=== PATIENT | female | born 1975 | race Caucasian/White ===

== ENCOUNTER → 2017-05-06 | Day surgery (SDC) | payer OTHER ==
[~2017-05-06] VITALS: Ht 167.6 cm; Wt 91.6 kg
[~2017-05-06] MED LIST: COLACE; FENTAnyl 50 MCG/ML VIAL ONE; MIDAZOLAM 1 MG/ML 2 ML INJ ONE; PROPOFOL 60 ML ONE
[2017-05-06 14:39] VITALS: Ht 167.6 cm; Wt 91.6 kg
[2017-05-06 14:43] VITALS: BP 146/84; PULSE 75; RESP 18
--- NOTE | 2017-05-06 15:15 | OPPN ---
Date/Time of Note Date/Time of Note DATE: 05/06/17 TIME: 15:14 Operative Report Preoperative Diagnosis Rectal bleeding Postoperative Diagnosis Internal hemorrhoids Operation/Procedure Performed Colonoscopy Surgeon see signature line bar assistant None Anesthesia: moderate sedation Estimated blood loss: none Transfusion Required none Specimen None Grafts/Implants none Complications none MARY CRABTREE MD May 06, 2017 15:15
[2017-05-06 15:54] VITALS: BP 146/87; RESP 16
--- NOTE | 2017-05-06 15:54 | GILP ---
DATE OF PROCEDURE: NAME OF PROCEDURE: Colonoscopy. SURGEON: Mary Molina MD PREOPERATIVE DIAGNOSIS: Rectal bleeding. POSTOPERATIVE DIAGNOSES 1. Colonoscopy all the way to the cecum. 2. Internal hemorrhoids. 3. No colitis or neoplasm was identified. INDICATION FOR THE PROCEDURE: Ms. Sheila Anderson is a 41-year-old female patient who had r ectal bleeding and change in the bowel habit. The patient was scheduled for colonoscopy for further evaluation. The procedure and possible complications are well explained to the patient. She understood and cons ented to the procedure. DESCRIPTION OF PROCEDURE: Under the influence of fentanyl and Versed, the colonoscope was carefully introduced in the rectum and under direct vision, it was advanced all the way to the cecum. FINDINGS: The patient had internal hemorrhoids. No colitis or neoplasm was identified. She tolerated the procedure very well and there was no complication from the procedure. At the end of the procedure, she was awake with stable vital signs and she was discharged home to the care of h er family. IMPRESSION: Please see postoperative diagnoses. PLAN: 1. Anusol-HC 2.5% cream b.i.d. 2. Next screening colonoscopy in 10 years. 3. Advised high fiber diet. Dictated By: MARY VENEGAS/ROHAN Conf#: [id number] DID#: [id number]
--- NOTE | 2017-05-07 08:05 | CONS ---
DATE OF ADMISSION: 05/06/2017 DATE OF CONSULTATION: TYPE OF CONSULTATION: Preoperative gastroenterology. I thank you very much for this kind referral. HISTORY OF PRESENT ILLNESS: Ms. Sheila Moyer is a 41-year-old female patient who has been referred to me for further evaluation of rectal bleeding. Patient has also noticed a change in the bowel habit with constipation. No past history of inflammatory bowel disease or colon neoplasm . The patient never had colonoscopy. Her appetite is good and no weight loss. No upper abdominal pain, nausea or vomiting. Status post cholecystectomy. No liver disease. Not a hypertensive or di abetic. No heart disease, lung problem, or kidney disease. Status post appendectomy. Nonsmoker. No alcohol abuse. No family history of gastrointestinal tract neoplasm. ALLERGIES: NO DRUG ALLERGY. MEDICATIONS: None. PHYSICAL EXAMINATION: GENERAL: She is 5 feet 5 inches tall and weighs 180 pounds. HEART: Normal heart sounds. LUNGS: Clear. ABDOMEN: Soft. No masses, normal bowel sounds. RECTAL: Examination deferred per the patient's request. It will be done at the time of colonoscopy . NEUROLOGIC: Normal neurological exam. IMPRESSION: 1. Rectal bleeding. 2. Change in the bowel habit with constipation. 3. Status post cholecystectomy and appendectomy. PLAN: Colonoscopy for further evaluation. The procedure and possible complications are well explained to the patient. She understands and con sents to the procedure. I thank you once again. With warmest personal regards, Dictated By: MARY VENEGAS/ROHAN Conf#: [id number] DID#: [id number]
== END | disposition home or self-care (01) ==
LOC: GIL 13:30
PROVIDERS: ATTEND Internal Medicine Gastroenterology
DX: R19.4 Change in bowel habit (principal); K64.8 Other hemorrhoids
CPT/HCPCS: 45378; 84703; J2250; J3010; Z7610